=== PATIENT | male | born 1975 | race Caucasian/White ===

== ENCOUNTER 2020-01-22 11:25 | Emergency (ER) | payer OTHER ==
[~2020-01-22] VITALS: Ht 182.9 cm; Wt 127.2 kg
[2020-01-22 12:15] VITALS: BP 142/68
--- NOTE | 2020-01-22 12:15 | PHYS DOC ---
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 He states last night he began having body aches and extreme fatigue. He states he went to bed at 7 PM and did not get up until after 9:00 this morning. He states does not like him. He states he just does not feel good. Patient denies any past medical history and he states he takes no medications for anything. He states he did have asthma as a child. Patient denies shortness of breath, chest pain, cough, fever, nasal congestion, abdominal pain, nausea, vomiting, diarrhea, headache, dizziness, vision changes. Review of Systems: Review of Systems: Musculoskeletal: Denies back pain or joint pain. Body aches. [] Neurologic: Denies headache, focal weakness or sensory changes. Charles. [] Heart Score: Risk Factors: Risk Factors: DM, Current or recent (<one month) smoker, HTN, HLP, family history of CAD, obesity. Risk Scores: Score 0 - 3: 2.5% MACE over next 6 weeks - Discharge Home Score 4 - 6: 20.3% MACE over next 6 weeks - Admit for Clinical Observation Score 7 - 10: 72.7% MACE over next 6 weeks - Early Invasive Strategies Physical Exam: PE: Constitutional: Well developed, well nourished, no acute distress, non-toxic appearance. [] HENT: Normocephalic, atraumatic, bilateral external ears normal, oropharynx moist, no oral exudates, nose normal. [] Eyes: PERRLA, EOMI, conjunctiva normal, no discharge. [] Neck: Normal range of motion, no tenderness, supple, no stridor. [] Cardiovascular:Heart rate regular rhythm, no murmur [] Lungs & Thorax: Bilateral breath sounds clear to auscultation [] Abdomen: Bowel sounds normal, soft, no tenderness, no masses, no pulsatile masses. [] Skin: Warm, dry, no erythema, no rash. [] Back: No tenderness, no CVA tenderness. [] Extremities: No tenderness, no cyanosis, no clubbing, ROM intact, no edema. [] Neurologic: Alert and oriented X 3, normal motor function, normal sensory function, no focal deficits noted. [] Psychologic: Affect normal, judgement normal, mood normal. Normal Physical Exam [] EKG: EKG: [] Radiology/Procedures: Radiology/Procedures: [] Impression: [facility] [address] [place] [address] IMAGING REPORT Signed PATIENT: EDMAR CASPEROUNT: [id number] : 1975 LOCATION: ER AGE: 44 SEX: M EXAM STATUS: REG ER ORD. PHYSICIAN: RAY BOONE APRN REASON: fatigue, weakness PROCEDURE: PORTABLE CHEST 1V PORTABLE CHEST 1V History: Fatigue. Weakness. Comparison: None. Findings: No consolidation or pleural effusion. Normal heart size. No pneumothorax. Impression: 1. No acute cardiopulmonary process. Electronically signed by: Phillip Lobo DO (01/22/2020 12:10 PM) [id number] DICTATED and SIGNED BY: PHILLIP LOBO DO DATE: 01/22/20 121 Course & Med Decision Making: Course & Med Decision Making Pertinent Labs and Imaging studies reviewed. (See chart for details) Lungs are clear to upper lobes and diminished in lower lobes. Alert and oriented. Vital signs within normal limits. Afebrile. Speaks in full clear sentences. Ambulatory with a steady gait. PERRLA. No extremity swelling. Skin pink warm and dry. COVID-19 CRITERIA: The patient was evaluated during the global COVID-19 pandemic, and that diagnosis was suspected/considered upon their initial presentation. Their evaluation, treatment and testing was consistent with current guidelines for patients who present with complaints or symptoms that may be related to COVID-19. [] Dragon Disclaimer: Dragon Disclaimer: This electronic medical record was generated, in whole or in part, using a voice recognition dictation system. Departure Departure Impression: Primary Impression: Body aches Additional Impression: Fatigue Qualified Codes: R53.83 - Other fatigue Disposition: 01 HOME, SELF-CARE Condition: STABLE Referrals: LALA FARMER MD (PCP) Patient Instructions: Fatigue Additional Instructions: Follow-up with your primary care provider if needed. Begin having severe chest pain or severe shortness of breath come back to the emergency room. Take Tylenol for pain or fever. Drink plenty of fluids. Self quarantine for the next 14 days. Scripts Acetaminophen (ACETAMINOPHEN) 500 Mg Tablet 1-2 TAB PO PRN Q6HRS PRN for pain or fever for 15 Days, #60 TAB 0 Refills Prov: RAY BOONE APRN 01/22/20 RAY BOONE APRN January 22, 2020 12:15
[2020-01-22 12:18] LABS: BASO # 0.1 x10^3/uL (0.0-0.2); BASO % 1 % (0-3); EOS # 0.2 x10^3/uL (0.0-0.7); EOS % 2 % (0-3); HEMATOCRIT 46.1 % (39.0-53.0); HEMOGLOBIN 15.5 g/dL (13.0-17.5); LYMPH % 24 % (24-48); MEAN CORPUSCULAR HEMOGLOBIN 28 pg (25-35); MEAN CORPUSCULAR HGB CONC 34 g/dL (31-37); MEAN CORPUSCULAR VOLUME 83 fL (79-100); MONO # 0.6 x10^3/uL (0.0-1.1); MONO % 5 % (0-9); NEUT # 8.8 x10^3/uL (1.8-7.7); NEUT % 69 % (31-73); PLATELET COUNT 294 x10^3/uL (140-400); RED BLOOD COUNT 5.55 x10^6/uL (4.30-5.70); RED CELL DISTRIBUTION WIDTH 13.8 % (11.5-14.5); WHITE BLOOD COUNT 12.7 x10^3/uL (4.0-11.0)
[2020-01-22 12:28] LABS: CREATININE 0.9 mg/dL (0.7-1.3); GFR 91.3; POTASSIUM 4.2 mmol/L (3.5-5.1)
[2020-01-22 12:34] LABS: ALBUMIN 3.5 g/dL (3.4-5.0); ALBUMIN/GLOBULIN RATIO 1.1 (1.0-1.7); TOTAL BILIRUBIN 0.4 mg/dL (0.2-1.0); TOTAL PROTEIN 6.6 g/dL (6.4-8.2)
[2020-01-22 12:38] LABS: INFLUENZA A PATIENT NEGATIVE (NEGATIVE); INFLUENZA B PATIENT NEGATIVE (NEGATIVE)
[2020-01-22] MEDS ORDERED: ACET500T68 PO (12:48)
== END 2020-01-22 13:08 | disposition home or self-care (01) ==
LOC: ER 11:25
DX: R52 Pain, unspecified (principal); R53.83 Other fatigue
CPT/HCPCS: 36415; 71045; 80053; 85025; 87804; 99284

== ENCOUNTER 2020-06-29 22:27 | Emergency (ER) | payer OTHER ==
[~2020-06-29] VITALS: Ht 182.9 cm; Wt 136.0 kg
[~2020-06-29 22:27] MED LIST: ACET500T68 PO
[2020-06-29 23:00] VITALS: BP 149/73
[2020-06-30] MEDS ORDERED: traMADol 50 MG TABLET PO ONE (00:30)
[2020-06-30] MEDS ORDERED: KETOROLAC 30 MG/ML VIAL. IM ONE (00:30)
[2020-06-30] MEDS ORDERED: TRAM50TA PO (00:42)
--- NOTE | 2020-06-30 00:42 | PHYS DOC ---
Past Medical History Past Medical History: No Pertinent History Past Surgical History: Other Additional Past Surgical Histo: L5,S1 DISCECTOMY Smoking Status: Current Every Day Smoker Alcohol Use: Occasionally General Adult EDM: Chief Complaint: WRIST PAIN HPI: HPI: Patient is a 45 year old [f__sex] who presents with [] Review of Systems: Review of Systems: Constitutional: Denies fever or chills. [] Eyes: Denies change in visual acuity. [] HENT: Denies nasal congestion or sore throat. [] Respiratory: Denies cough or shortness of breath. [] Cardiovascular: Denies chest pain or edema. [] GI: Denies abdominal pain, nausea, vomiting, bloody stools or diarrhea. [] : Denies dysuria. [] Musculoskeletal: Denies back pain or joint pain. [] Integument: Denies rash. [] Neurologic: Denies headache, focal weakness or sensory changes. [] Endocrine: Denies polyuria or polydipsia. [] Lymphatic: Denies swollen glands. [] Psychiatric: Denies depression or anxiety. [] Heart Score: Risk Factors: Risk Factors: DM, Current or recent (<one month) smoker, HTN, HLP, family history of CAD, obesity. Risk Scores: Score 0 - 3: 2.5% MACE over next 6 weeks - Discharge Home Score 4 - 6: 20.3% MACE over next 6 weeks - Admit for Clinical Observation Score 7 - 10: 72.7% MACE over next 6 weeks - Early Invasive Strategies Current Medications: Current Medications Medications (Trade) Dose Ordered Sig/Dedra Start Time Stop Time Status Last Admin Dose Admin Ketorolac Tromethamine (Toradol 30mg Vial) 30 mg 1X ONCE 06/30/20 00:30 06/30/20 00:31 DC 06/30/20 00:37 30 MG Tramadol HCl (Ultram) 50 mg 1X ONCE 06/30/20 00:30 06/30/20 00:31 DC 06/30/20 00:37 50 MG Allergies: Allergies: Allergies Coded Allergies Type Severity Reaction Last Updated Verified No Known Drug Allergies 06/29/20 No Physical Exam: PE: Constitutional: Well developed, well nourished, no acute distress, non-toxic appearance. [] HENT: Normocephalic, atraumatic, bilateral external ears normal, oropharynx moist, no oral exudates, nose normal. [] Eyes: PERRLA, EOMI, conjunctiva normal, no discharge. [] Neck: Normal range of motion, no tenderness, supple, no stridor. [] Cardiovascular:Heart rate regular rhythm, no murmur [] Lungs & Thorax: Bilateral breath sounds clear to auscultation [] Abdomen: Bowel sounds normal, soft, no tenderness, no masses, no pulsatile masses. [] Skin: Warm, dry, no erythema, no rash. [] Back: No tenderness, no CVA tenderness. [] Extremities: No tenderness, no cyanosis, no clubbing, ROM intact, no edema. [] Neurologic: Alert and oriented X 3, normal motor function, normal sensory funct ion, no focal deficits noted. [] Psychologic: Affect normal, judgement normal, mood normal. [] Current Patient Data: Vital Signs: Vital Signs Date Time Temp Pulse Resp B/P (MAP) Pulse Ox O2 Delivery O2 Flow Rate FiO2 06/30/20 00:37 16 99 Room Air 06/29/20 23:00 97.9 59 149/73 (98) 97.9 EKG: EKG: [] Radiology/Procedures: Radiology/Procedures: [] Course & Med Decision Making: Course & Med Decision Making Pertinent Labs and Imaging studies reviewed. (See chart for details) [] Dragon Disclaimer: Dragon Disclaimer: This electronic medical record was generated, in whole or in part, using a voice recognition dictation system. Departure Departure Impression: Primary Impression: Wrist injury Qualified Codes: S69.92XA - Unspecified injury of left wrist, hand and finger(s), initial encounter Disposition: 01 DC HOME SELF CARE/HOMELESS Condition: STABLE Referrals: LALA FARMER MD (PCP) EVONNE RAZA MD Patient Instructions: Cast or Splint Care, [id number], Wrist Pain, [id number] Additional Instructions: Please follow closely with orthopedics for further evaluation due to concern for possible "Scaphoid" injury. Maintain splint until seen by orthopedics. May also take over the counter Tylenol and/or Ibuprofen for pain or discomfort as needed. ICE area of discomfort 20 min on then leave off for next 20 min as needed for next few days. Scripts Tramadol Hcl (TRAMADOL HCL) 50 Mg Tablet 50 MG PO Q6HRS PRN for PAIN, #14 TAB Prov: LEONARDO LEDESMA DO 06/30/20 LEONARDO LEDESMA DO Jun 30, 2020 00:42
--- NOTE | 2020-06-30 00:53 | RAD ---
EXAM: WRIST 3V LEFT 06/30/2020 12:00 AM CLINICAL INDICATION:Pain, status post fall COMPARISON:None TECHNIQUE:3 views of left wrist FINDINGS:No acute fracture. Alignment is normal. Joint spaces are maintained. No soft tissue abnormality. IMPRESSION:Normal radiograph of the left wrist. Electronically signed by: Briseida Casas MD (06/30/2020 12:50 AM) [id number]
== END 2020-06-30 01:16 | disposition home or self-care (01) ==
LOC: ER 22:27
DX: S69.92XA Unspecified injury of left wrist, hand and finger(s), initial encounter (principal); F17.200 Nicotine dependence, unspecified, uncomplicated; W05.1XXA Fall from non-moving nonmotorized scooter, initial encounter; Y93.89 Activity, other specified; Y92.89 Other specified places as the place of occurrence of the external cause; Y99.8 Other external cause status
CPT/HCPCS: 29125; 73110; 96372; 99283; A4565; J1885